=== PATIENT | male | born 2000 | race Caucasian/White ===

== ENCOUNTER → 2020-03-09 | Outpatient (CLI) | payer OTHER ==
[~2020-03-09] MED LIST: ADDERALL XR20 MG PO; ADDERALL10 MG PO; ATARAX25 MG PO; MOTRIN600 MG PO; PEPCID20 MG PO; PREDNISONE20 MG PO; PRELONE15 MG/5 ML PO; ZITHROMAX200 MG/51 PO; ZYRTEC10 MG PO
== END | disposition home or self-care (01) ==
LOC: COVID19 15:34
PROVIDERS: ATTEND Family Medicine
DX: Z20.828 Contact with and (suspected) exposure to other viral communicable diseases (principal)

== ENCOUNTER 2023-09-23 15:43 | Emergency (ER) | payer OTHER ==
[~2023-09-23] VITALS: Ht 182.8 cm; Wt 113.4 kg
[2023-09-23] MEDS ORDERED: CEPHALEXIN500 M1 PO (16:17)
[2023-09-23] MEDS ORDERED: Bacitracin Zinc 14 GM TUBE T ONE (16:20)
== END 2023-09-23 16:50 | disposition home or self-care (01) ==
LOC: ED 15:43
DX: S61.216A Laceration without foreign body of right little finger without damage to nail, initial encounter (principal); W31.89XA Contact with other specified machinery, initial encounter; Y93.89 Activity, other specified; Y92.89 Other specified places as the place of occurrence of the external cause; Y99.8 Other external cause status